=== PATIENT | male | born 1955 | race Caucasian/White ===

== ENCOUNTER 2017-08-02 13:03 | Inpatient (IN) ==
[2017-08-02] MEDS ORDERED: methylPREDNISolone SOD SUC 125 MG/2 ML VIAL IV STA (17:06)
[2017-08-02] MEDS ORDERED: LEVOFLOXACIN INJ 750 MG in PREMIX 1 EACH IV STA (17:06)
[2017-08-02] MEDS ORDERED: ALBUTEROL/IPRATROPIUM 3 ML NEB RESP TX STA ×2 (17:06→18:52)
[2017-08-02] MEDS ORDERED: hydrALAZINE 20 MG/1 ML VIAL IV STA (17:09)
[2017-08-02] MEDS ORDERED: ACETAMINOPHEN/CODEINE 120-12 MG/5 ML 12.5 ML UDCUP PO STA (17:09)
[2017-08-02] MEDS ORDERED: KETOROLAC 30 MG/1 ML VIAL IV STA (17:10)
[2017-08-02 17:32] LABS: Basophils % 0.2 % (0.0-0.8); Eosinophils # 0.1 10*3/uL (0.0-0.87); Eosinophils % 0.3 % (0.00-10.9); Hemoglobin 13.8 GM/DL (14.0-18.0); Immature Granulocytes % 0.6 %; Immature Granulocytes Absolute 0.12 #; Lymphocytes % 10.8 % (21.2-54.2); Mean Corpuscular HGB Conc 34.5 GM/DL (32-36); Mean Corpuscular Hemoglobin 32 PG (27-34); Mean Corpuscular Volume 91.5 FL (87-102); Mean Platelet Volume 10.8 FL (9.6-12.0); Monocytes # 1.2 10*3/uL (0.11-0.8); Monocytes % 6.5 % (1.7-12.7); Neutrophils # 15.2 10*3/uL (1.4-7.4); Neutrophils % 81.6 % (38.7-73.9); Platelet Count 271 T/CUMM (130-400); Red Blood Count 4.37 MC/CUMM (3.8-5.5); Red Cell Distribution Width 12.7 % (9.3-17.3); White Blood Count 18.6 T/CUMM (4-12)
[2017-08-02] MEDS ORDERED: TERBUTALINE 1 MG/1 ML VIAL SUBCUT ONE (17:36)
[2017-08-02] MEDS ORDERED: methylPREDNISolone SOD SUC 125 MG/2 ML VIAL ONE (17:37)
[2017-08-02] MEDS ORDERED: ACETAMINOPHEN/CODEINE 120-12 MG/5 ML 12.5 ML UDCUP ONE (17:37)
[2017-08-02] MEDS ORDERED: hydrALAZINE 20 MG/1 ML VIAL ONE (17:37)
[2017-08-02] MEDS ORDERED: KETOROLAC 30 MG/1 ML VIAL ONE (17:37)
[2017-08-02 18:18] LABS: Alanine Aminotransferase 21 U/L (16-61); Albumin 3.1 G/DL (3.4-5.0); Alkaline Phosphatase 64 U/L (45-117); Aspartate Amino Transferase 18 U/L (0-37); Blood Urea Nitrogen 8 MG/DL (7-18); Calcium 8.7 MG/DL (8.5-10.1); Glucose 90 MG/DL (74-106); Osmolality,Calculated 270.8 MOS/KG (273-304); Potassium 4.7 MMOL/L (3.5-5.1); Sodium 137 MMOL/L (136-145); Total Protein 7.1 G/DL (6.4-8.3); Troponin I Only < 0.015 NG/ML (0.00-0.045)
[2017-08-02] MEDS: TERBUTALINE 1 MG/1 ML VIAL SUBCUT SCH (18:18)
[2017-08-02] MEDS ORDERED: LEVOFLOXACIN INJ 150 ML IV ONE (18:21)
[2017-08-02] MEDS ORDERED: LISINOPRIL 10 MG TABLET PO STA (18:53)
[2017-08-02] MEDS ORDERED: ALBUTEROL 2.5 MG/3 ML NEB RESP TX PRN (19:42)
[2017-08-02] MEDS ORDERED: ONDANSETRON 4 MG/2 ML VIAL IV PRN (19:42)
[2017-08-02] MEDS ORDERED: ACETAMINOPHEN 325 MG TABLET PO PRN (19:42)
[2017-08-02 21:05] LABS: Apearance,Urine Slightly Hazy (Clear); Bacteria,Urine Many /HPF (Few); Bilirubin,Urine Negative (Negative); Blood, Urine Moderate mg/dL (Negative); Glucose,Urine (UA) Negative (Negative); Ketones,Urine 20 mg/dL (Negative); Mucus,Urine Moderate /LPF (Occasional); Nitrite,Urine Negative (Negative); Protein,Urine Negative; Urine Color Yellow (Yellow); Urine Specific Gravity 1.009 (1.001-1.035); Urine Urobilinogen < 2.0 EU/DL (0.2-1.0); WBC,Urine 56 /HPF (0-6)
[2017-08-02] MEDS ORDERED: NICOTINE 21 MG/24 HR PATCH TRANSDERM PRN (22:19)
[2017-08-02 22:40] LABS: Barbiturates Screen,Urine Negative (Negative); Benzodiazepines Screen,Urine Negative (Negative); Cannabinoid Screen,Urine Negative (Negative); Opiate Screen,Urine Positive (Negative); Phencyclidine Screen,Urine Negative (Negative)
[2017-08-02] MEDS: methylPREDNISolone SOD SUC 40 MG/1 ML VIAL IV SCH (23:44)
[2017-08-02] MEDS: FLUTICASONE/SALMETEROL 250-50 DISKUS 14 DOSE INH SCH (23:44)
[2017-08-03] MEDS: ALBUTEROL/IPRATROPIUM 3 ML NEB RESP TX SCH ×4 (00:40→20:59)
[2017-08-03] MEDS: methylPREDNISolone SOD SUC 40 MG/1 ML VIAL IV SCH ×3 (04:50→21:14)
[2017-08-03 07:22] LABS: Basophils % 0.1 % (0.0-0.8); Hematocrit 38.9 VOL% (42.0-52.0); Hemoglobin 13.5 GM/DL (14.0-18.0); Immature Granulocytes % 0.8 %; Immature Granulocytes Absolute 0.07 #; Lymphocytes # 0.6 10*3/uL (1.4-4.0); Lymphocytes % 6.2 % (21.2-54.2); Mean Corpuscular HGB Conc 34.7 GM/DL (32-36); Mean Corpuscular Hemoglobin 31 PG (27-34); Mean Corpuscular Volume 89.4 FL (87-102); Mean Platelet Volume 11.1 FL (9.6-12.0); Monocytes # 0.2 10*3/uL (0.11-0.8); Monocytes % 1.8 % (1.7-12.7); Neutrophils # 8.2 10*3/uL (1.4-7.4); Neutrophils % 91.1 % (38.7-73.9); Platelet Count 271 T/CUMM (130-400); Red Blood Count 4.35 MC/CUMM (3.8-5.5); Red Cell Distribution Width 12.7 % (9.3-17.3)
[2017-08-03 07:43] LABS: Band Neutrophils 1 % (0-10); Giant Platelets Few; Hypochromasia 1+; Lymphocytes 6 % (20-55); Platelet Estimate Adequate; Segmented Neutrophils 88 % (50-85); Total Cells Counted 100
[2017-08-03] MEDS: TERBUTALINE 1 MG/1 ML VIAL SUBCUT SCH (07:45)
[2017-08-03 07:53] LABS: Albumin 2.8 G/DL (3.4-5.0); Bilirubin,Total 0.4 MG/DL (0.2-1.0); Calcium 8.8 MG/DL (8.5-10.1); Osmolality,Calculated 278.8 MOS/KG (273-304); Potassium 4.4 MMOL/L (3.5-5.1); Total Protein 6.9 G/DL (6.4-8.3)
[2017-08-03] MEDS: PANTOPRAZOLE 40 MG TABLET PO SCH (08:43)
[2017-08-03] MEDS: FLUTICASONE/SALMETEROL 250-50 DISKUS 14 DOSE INH SCH ×2 (08:43→20:51)
[2017-08-03] MEDS ORDERED: LEVOFLOXACIN INJ 750 MG in PREMIX 1 EACH IV SCH (17:00)
[2017-08-04] MEDS: ALBUTEROL/IPRATROPIUM 3 ML NEB RESP TX SCH ×2 (00:18→08:25)
[2017-08-04] MEDS: methylPREDNISolone SOD SUC 40 MG/1 ML VIAL IV SCH (04:56)
[2017-08-04 08:20] VITALS: BP 134/88
[2017-08-04] MEDS: PANTOPRAZOLE 40 MG TABLET PO SCH (10:01)
[2017-08-04] MEDS: FLUTICASONE/SALMETEROL 250-50 DISKUS 14 DOSE INH SCH (10:01)
== END 2017-08-04 11:21 | disposition home or self-care (01) | DRG 192 ==
LOC: N.ED 13:03 → N.EDINP 19:42 → N.2E 20:18